=== PATIENT | male | born 1970 | race Caucasian/White ===

== ENCOUNTER 2023-12-09 03:00 | Emergency (ER) | payer BC ==
[2023-12-09 03:10] VITALS: BP 139/91; PULSE 69; RESP 20; TEMP 97; BMI 26.6
[2023-12-09] MEDS: ACETAMINOPHEN 1000 MG/100 ML BAG IVPB ONE (03:27)
[2023-12-09 03:31] LABS: BASO % 0.9 % (0-2.0); EOS % 0.9 % (0-4.5); HEMATOCRIT 47.6 % (35.4-49); HEMOGLOBIN 16.5 GM/dL (11.7-16.9); LYMPH % 31.5 % (8-40); MCH 31.6 pg (25.7-33.7); MCHC 34.6 g/dl (32.0-35.9); MEAN CELL VOLUME 91.3 fl (80-96); MEAN PLT VOLUME 7.9 fl (7.5-11.1); MONO % 8.6 % (3.8-10.2); NEUT % 58.1 % (42.8-82.8); PLATELET COUNT 387 10^3/uL (134-434); RBC 5.21 M/mm3 (4.00-5.60); RDW 12.7 % (11.9-15.9); WHITE BLOOD COUNT 8.6 K/mm3 (4.0-10.0)
[2023-12-09 03:51] LABS: POTASSIUM 3.8 mmol/L (3.5-5.1)
[2023-12-09 03:55] LABS: ALBUMIN 4.5 g/dl (3.4-5.0); BLOOD UREA NITROGEN 21.1 mg/dL (7-18); CALCIUM 10.6 mg/dL (8.5-10.1)
[2023-12-09 03:57] LABS: CREATININE 0.8 mg/dL (0.55-1.3)
[2023-12-09 03:59] LABS: TOT PROT 7.8 g/dl (6.4-8.2)
[2023-12-09] MEDS: SODIUM CHLORIDE 1,000 ML IV STA (04:58)
[2023-12-09] MEDS ORDERED: KETOROLAC TROMETHAMINE 30 MG/1 ML VIAL ONE (05:32)
[2023-12-09] MEDS: KETOROLAC TROMETHAMINE 30 MG/1 ML VIAL IVPUSH ONE (05:35)
[2023-12-09 05:44] LABS: PH,URINE 8.5 (5.0-8.0); URINE APPEARANCE CLOUDY; URINE BILIRUBIN NEGATIVE (NEGATIVE); URINE COLOR YELLOW; URINE GLUCOSE (UA) NEGATIVE (NEGATIVE); URINE KETONE 2+ (NEGATIVE); URINE LEUK ESTERASE NEGATIVE (NEGATIVE); URINE NITRITE NEGATIVE (NEGATIVE); URINE PROTEIN NEGATIVE (NEGATIVE)
[2023-12-09] MEDS ORDERED: PANTOPRAZOLE SODIUM 40 MG VIAL ONE (06:35)
[2023-12-09] MEDS: PANTOPRAZOLE SODIUM 40 MG VIAL IVPB ONE (06:44)
== END 2023-12-09 07:16 | disposition home or self-care (01) ==
LOC: FER 03:00
PROC: 3E033NZ Introduction of Analgesics, Hypnotics, Sedatives into Peripheral Vein, Percutaneous Approach (ICD-10-PCS; principal; 2023-12-09)
PROC: 3E0333Z Introduction of Anti-inflammatory into Peripheral Vein, Percutaneous Approach (ICD-10-PCS; 2023-12-09)
PROC: 3E033GC Introduction of Other Therapeutic Substance into Peripheral Vein, Percutaneous Approach (ICD-10-PCS; 2023-12-09)
PROC: 3E0337Z Introduction of Electrolytic and Water Balance Substance into Peripheral Vein, Percutaneous Approach (ICD-10-PCS; 2023-12-09)
DX: R10.11 Right upper quadrant pain (principal); R10.13 Epigastric pain
CPT/HCPCS: 36415; 74177-TC; 76705-TC; 80053; 81003; 84484; 85025; 99285-25; J0131; Q9967